=== PATIENT | male | born 1970 | race African-American/Black ===

== ENCOUNTER 2021-03-10 11:22 | Inpatient (IN) | payer OTHER ==
[2021-03-10 12:19] VITALS: BMI 19.8
[2021-03-10] MEDS ORDERED: MAGNESIUM HYDROX 2400MG/30ML ORAL SUSPENSION 30 ML CUP PO PRN (13:21)
[2021-03-10] MEDS ORDERED: MAGNESIUM CITRATE 300 ML BOTTLE PO PRN (13:21)
[2021-03-10] MEDS ORDERED: NICOTINE 10 MG CARTRIDGE (INHALER) IH PRN (13:21)
[2021-03-10] MEDS ORDERED: MAG HYDROX/AL HYDROX/SIMETH 30 ML UNIT-DOSE CUP PO PRN (13:21)
[2021-03-10] MEDS ORDERED: ACETAMINOPHEN 325 MG TABLET (FP) PO PRN ×2 (13:21)
[2021-03-10] MEDS ORDERED: IBUPROFEN 400 MG TABLET (FP) PO PRN (13:21)
[2021-03-10] MEDS ORDERED: MENTHOL/PHENOL 1 EACH UD MM PRN (13:21)
[2021-03-10] MEDS ORDERED: BISMUTH SUBSALICYLATE 524 MG/30 ML PO PRN (13:21)
[2021-03-10] MEDS ORDERED: chlordiazePOXIDE HCL 25 MG CAPSULE PO PRN (13:21)
[2021-03-10] MEDS ORDERED: METHOCARBAMOL 500 MG TABLET PO PRN (13:21)
[2021-03-10] MEDS ORDERED: ONDANSETRON *ODT* 4 MG TABLET SL PRN (13:21)
[2021-03-10] MEDS: hydrOXYzine PAMOATE 25 MG CAPSULE (FP) PO SCH ×3 (15:44→22:53)
[2021-03-10] MEDS: chlordiazePOXIDE HCL 25 MG CAPSULE PO SCH ×2 (19:23→22:53)
[2021-03-10] MEDS: MELATONIN 5 MG TABLETS PO SCH (22:52)
[2021-03-10] MEDS: THIAMINE HCL 100 MG TABLET (FP) PO SCH (22:57)
[2021-03-11] MEDS: chlordiazePOXIDE HCL 25 MG CAPSULE PO SCH ×3 (06:59→18:50)
[2021-03-11] MEDS: hydrOXYzine PAMOATE 25 MG CAPSULE (FP) PO SCH ×4 (07:00→18:51)
[2021-03-11] MEDS: PRENATAL VITAMINS W/ FOLIC ACID TABLET (FP) PO SCH (10:28)
[2021-03-11 12:40] LABS: ALBUMIN 2.9 g/dl (3.4-5.0); CALCIUM 9.1 mg/dL (8.5-10.1)
[2021-03-11 12:41] LABS: BLOOD UREA NITROGEN 12.6 mg/dL (7-18)
[2021-03-11 12:43] LABS: CREATININE 0.9 mg/dL (0.55-1.3)
[2021-03-11 12:44] LABS: TOT PROT 6.3 g/dl (6.4-8.2)
[2021-03-11 12:45] LABS: BILIRUBIN,TOTAL 2.2 mg/dL (0.2-1)
[2021-03-11 13:19] LABS: HEMATOCRIT 33.5 % (35.4-49); HEMOGLOBIN 11.7 GM/dL (11.7-16.9); MCH 26.1 pg (25.7-33.7); MEAN CELL VOLUME 74.7 fl (80-96); MEAN PLT VOLUME 10.1 fl (7.5-11.1); PLATELET COUNT 269 10^3/uL (134-434); RBC 4.48 M/mm3 (4.00-5.60); RDW 16.5 % (11.9-15.9); WHITE BLOOD COUNT 9.1 K/mm3 (4.0-10.0)
[2021-03-12] MEDS: hydrOXYzine PAMOATE 25 MG CAPSULE (FP) PO SCH ×6 (00:36→22:46)
[2021-03-12] MEDS: chlordiazePOXIDE HCL 25 MG CAPSULE PO SCH ×5 (00:36→22:44)
[2021-03-12] MEDS: MELATONIN 5 MG TABLETS PO SCH ×2 (00:36→22:46)
[2021-03-12] MEDS: THIAMINE HCL 100 MG TABLET (FP) PO SCH ×2 (00:36→22:45)
[2021-03-12] MEDS: PRENATAL VITAMINS W/ FOLIC ACID TABLET (FP) PO SCH (10:38)
[2021-03-13] MEDS ORDERED: chlordiazePOXIDE HCL 10 MG CAPSULE PO PRN
[2021-03-13] MEDS: hydrOXYzine PAMOATE 25 MG CAPSULE (FP) PO SCH ×5 (05:51→23:36)
[2021-03-13] MEDS: chlordiazePOXIDE HCL 10 MG CAPSULE PO SCH ×4 (05:51→23:36)
[2021-03-13] MEDS: PRENATAL VITAMINS W/ FOLIC ACID TABLET (FP) PO SCH (10:37)
[2021-03-13] MEDS ORDERED: COLLOIDAL OATMEAL 1 BAR EACH TP PRN (10:43)
[2021-03-13] MEDS: MELATONIN 5 MG TABLETS PO SCH (23:35)
[2021-03-13] MEDS: THIAMINE HCL 100 MG TABLET (FP) PO SCH (23:36)
[2021-03-14] MEDS: chlordiazePOXIDE HCL 10 MG CAPSULE PO SCH ×3 (00:35→18:00)
[2021-03-14] MEDS: hydrOXYzine PAMOATE 25 MG CAPSULE (FP) PO SCH ×5 (06:15→23:20)
[2021-03-14] MEDS: PRENATAL VITAMINS W/ FOLIC ACID TABLET (FP) PO SCH (10:41)
[2021-03-14 10:46] LABS: ALBUMIN 3.3 g/dl (3.4-5.0)
[2021-03-14 10:49] LABS: BILIRUBIN,DIRECT 0.4 mg/dL (0.0-0.2)
[2021-03-14 10:51] LABS: BILIRUBIN,TOTAL 1.4 mg/dL (0.2-1); TOT PROT 6.8 g/dl (6.4-8.2)
[2021-03-14] MEDS: THIAMINE HCL 100 MG TABLET (FP) PO SCH (23:20)
[2021-03-14] MEDS: MELATONIN 5 MG TABLETS PO SCH (23:20)
[2021-03-15] MEDS ORDERED: chlordiazePOXIDE HCL 10 MG CAPSULE PO ONE (05:00)
[2021-03-15] MEDS: hydrOXYzine PAMOATE 25 MG CAPSULE (FP) PO SCH ×2 (07:19→10:32)
[2021-03-15 07:20] VITALS: BP 110/67
[2021-03-15 09:24] VITALS: PULSE 72; TEMP 97.5
[2021-03-15] MEDS: PRENATAL VITAMINS W/ FOLIC ACID TABLET (FP) PO SCH (10:32)
== END 2021-03-15 11:18 | disposition home or self-care (01) | DRG 774 ==
LOC: YASAS 11:22 → Y6N 13:52
PROVIDERS: ADMIT Allergy & Immunology; ATTEND Allergy & Immunology
PROC: HZ2ZZZZ Detoxification Services for Substance Abuse Treatment (ICD-10-PCS; principal; 2021-03-10)
DX: F10.230 Alcohol dependence with withdrawal, uncomplicated (principal); F14.20 Cocaine dependence, uncomplicated; F16.20 Hallucinogen dependence, uncomplicated; F12.20 Cannabis dependence, uncomplicated; F17.210 Nicotine dependence, cigarettes, uncomplicated; F19.24 Other psychoactive substance dependence with psychoactive substance-induced mood disorder; F43.10 Post-traumatic stress disorder, unspecified; E80.6 Other disorders of bilirubin metabolism; U07.1 COVID-19; Z56.0 Unemployment, unspecified; Z59.01 Sheltered homelessness
CPT/HCPCS: 36415; 80053; 80076; 85027; 86780; C9803; U0003; U0005

== ENCOUNTER 2021-03-31 13:08 | Inpatient (IN) | payer OTHER ==
[2021-03-31] MEDS ORDERED: chlordiazePOXIDE HCL 25 MG CAPSULE PO PRN (15:20)
[2021-03-31] MEDS ORDERED: IBUPROFEN 400 MG TABLET (FP) PO PRN (15:20)
[2021-03-31] MEDS ORDERED: MENTHOL/PHENOL 1 EACH UD MM PRN (15:20)
[2021-03-31] MEDS ORDERED: ONDANSETRON *ODT* 4 MG TABLET SL PRN (15:20)
[2021-03-31] MEDS ORDERED: ACETAMINOPHEN 325 MG TABLET (FP) PO PRN ×2 (15:20)
[2021-03-31] MEDS ORDERED: MAGNESIUM CITRATE 300 ML BOTTLE PO PRN (15:20)
[2021-03-31] MEDS ORDERED: NICOTINE 10 MG CARTRIDGE (INHALER) IH PRN (15:20)
[2021-03-31] MEDS ORDERED: MAGNESIUM HYDROX 2400MG/30ML ORAL SUSPENSION 30 ML CUP PO PRN (15:20)
[2021-03-31] MEDS ORDERED: BISMUTH SUBSALICYLATE 262 MG/15 ML BTL PO PRN (15:20)
[2021-03-31] MEDS ORDERED: MAG HYDROX/AL HYDROX/SIMETH 30 ML UNIT-DOSE CUP PO PRN (15:20)
[2021-03-31] MEDS ORDERED: METHOCARBAMOL 500 MG TABLET PO PRN (15:20)
[2021-03-31] MEDS: hydrOXYzine PAMOATE 25 MG CAPSULE (FP) PO SCH ×2 (18:00→22:31)
[2021-03-31] MEDS: chlordiazePOXIDE HCL 25 MG CAPSULE PO SCH ×2 (18:00→22:31)
[2021-03-31 18:24] VITALS: BMI 19.8
[2021-03-31] MEDS: THIAMINE HCL 100 MG TABLET (FP) PO SCH (22:31)
[2021-03-31] MEDS: MELATONIN 5 MG TABLETS PO SCH (22:31)
[2021-04-01] MEDS: hydrOXYzine PAMOATE 25 MG CAPSULE (FP) PO SCH ×5 (06:03→22:29)
[2021-04-01] MEDS: chlordiazePOXIDE HCL 25 MG CAPSULE PO SCH ×4 (06:03→22:30)
[2021-04-01] MEDS: PRENATAL VITAMINS W/ FOLIC ACID TABLET (FP) PO SCH (10:37)
[2021-04-01 11:49] LABS: HEMATOCRIT 33.9 % (35.4-49); HEMOGLOBIN 11.5 GM/dL (11.7-16.9); MCH 24.7 pg (25.7-33.7); MEAN CELL VOLUME 72.7 fl (80-96); MEAN PLT VOLUME 9.6 fl (7.5-11.1); PLATELET COUNT 332 10^3/uL (134-434); RBC 4.66 M/mm3 (4.00-5.60); RDW 18.6 % (11.9-15.9); WHITE BLOOD COUNT 10.3 K/mm3 (4.0-10.0)
[2021-04-01] MEDS ORDERED: FLU VACC QS2021-22(6MOS UP)/PF 60 MCG/0.5 ML SYRINGE IM ONE (12:00)
[2021-04-01 12:40] LABS: ALBUMIN 3.3 g/dl (3.4-5.0); BLOOD UREA NITROGEN 12.3 mg/dL (7-18); CALCIUM 9.1 mg/dL (8.5-10.1)
[2021-04-01 12:43] LABS: BILIRUBIN,TOTAL 2.2 mg/dL (0.2-1); CREATININE 0.9 mg/dL (0.55-1.3); TOT PROT 6.3 g/dl (6.4-8.2)
[2021-04-01 13:11] LABS: HIV INTERPRETATION NEGATIVE (NEGATIVE)
[2021-04-01] MEDS: MELATONIN 5 MG TABLETS PO SCH (22:29)
[2021-04-01] MEDS: THIAMINE HCL 100 MG TABLET (FP) PO SCH (22:29)
[2021-04-02] MEDS: chlordiazePOXIDE HCL 25 MG CAPSULE PO SCH ×4 (05:48→22:36)
[2021-04-02] MEDS: hydrOXYzine PAMOATE 25 MG CAPSULE (FP) PO SCH ×5 (05:48→22:37)
[2021-04-02] MEDS: PRENATAL VITAMINS W/ FOLIC ACID TABLET (FP) PO SCH (10:42)
[2021-04-02] MEDS: FERROUS SO4 325 MG TABLET (FP) PO SCH (17:51)
[2021-04-02] MEDS: THIAMINE HCL 100 MG TABLET (FP) PO SCH (22:37)
[2021-04-02] MEDS: MELATONIN 5 MG TABLETS PO SCH (22:38)
[2021-04-03] MEDS ORDERED: chlordiazePOXIDE HCL 10 MG CAPSULE PO PRN
[2021-04-03] MEDS: hydrOXYzine PAMOATE 25 MG CAPSULE (FP) PO SCH ×5 (06:06→22:21)
[2021-04-03] MEDS: chlordiazePOXIDE HCL 10 MG CAPSULE PO SCH ×4 (06:06→22:21)
[2021-04-03] MEDS: FERROUS SO4 325 MG TABLET (FP) PO SCH ×2 (08:01→17:42)
[2021-04-03] MEDS: PRENATAL VITAMINS W/ FOLIC ACID TABLET (FP) PO SCH (10:30)
[2021-04-03] MEDS: MELATONIN 5 MG TABLETS PO SCH (22:20)
[2021-04-03] MEDS: THIAMINE HCL 100 MG TABLET (FP) PO SCH (22:21)
[2021-04-04] MEDS: chlordiazePOXIDE HCL 10 MG CAPSULE PO SCH ×2 (05:47→17:58)
[2021-04-04] MEDS: hydrOXYzine PAMOATE 25 MG CAPSULE (FP) PO SCH ×5 (05:47→21:21)
[2021-04-04] MEDS: FERROUS SO4 325 MG TABLET (FP) PO SCH ×2 (07:18→17:58)
[2021-04-04] MEDS: PRENATAL VITAMINS W/ FOLIC ACID TABLET (FP) PO SCH (10:15)
[2021-04-04] MEDS ORDERED: PSYLLIUM 5.85 GM PACKET PO SCH (14:00)
[2021-04-04] MEDS: THIAMINE HCL 100 MG TABLET (FP) PO SCH (21:21)
[2021-04-04] MEDS: MELATONIN 5 MG TABLETS PO SCH (21:22)
[2021-04-04] MEDS ORDERED: BENZOCAINE 28 GM HEMORRHOIDAL OINTMENT RC SCH (22:00)
[2021-04-05] MEDS ORDERED: chlordiazePOXIDE HCL 10 MG CAPSULE PO ONE (05:00)
[2021-04-05] MEDS: hydrOXYzine PAMOATE 25 MG CAPSULE (FP) PO SCH (05:31)
[2021-04-05] MEDS: FERROUS SO4 325 MG TABLET (FP) PO SCH (07:25)
[2021-04-05 09:31] VITALS: BP 142/64; PULSE 81; TEMP 97.1
== END 2021-04-05 09:47 | disposition other institution (70) | DRG 774 ==
LOC: YASAS 13:08 → Y6N 20:47 → UNDODISIN 04-01 09:37
PROVIDERS: ADMIT Allergy & Immunology; ATTEND Allergy & Immunology
PROC: HZ2ZZZZ Detoxification Services for Substance Abuse Treatment (ICD-10-PCS; principal; 2021-03-31)
DX: F10.230 Alcohol dependence with withdrawal, uncomplicated (principal); F14.20 Cocaine dependence, uncomplicated; F16.10 Hallucinogen abuse, uncomplicated; F12.20 Cannabis dependence, uncomplicated; F17.210 Nicotine dependence, cigarettes, uncomplicated; F43.20 Adjustment disorder, unspecified; F43.10 Post-traumatic stress disorder, unspecified; D50.9 Iron deficiency anemia, unspecified; E80.6 Other disorders of bilirubin metabolism; K64.9 Unspecified hemorrhoids; Z59.01 Sheltered homelessness
CPT/HCPCS: 36415; 80053; 85027; 86480; 86780; 87389; 90686; 90791; C9803; G0008; U0003; U0005